=== PATIENT | male | born 1995 | race Caucasian/White ===

== ENCOUNTER 2020-08-31 10:37 | Emergency (ER) | payer SELFPAY ==
[~2020-08-31] VITALS: Ht 172.7 cm; Wt 93.0 kg
[2020-08-31 10:55] VITALS: BP 138/78
[2020-08-31] MEDS ORDERED: CARI350T PO (11:32)
== END 2020-08-31 11:44 | disposition home or self-care (01) ==
LOC: ER 10:42
DX: S30.0XXA Contusion of lower back and pelvis, initial encounter (principal); Z79.899 Other long term (current) drug therapy; V49.49XA Driver injured in collision with other motor vehicles in traffic accident, initial encounter; Y93.89 Activity, other specified; Y92.488 Other paved roadways as the place of occurrence of the external cause; Y99.8 Other external cause status
CPT/HCPCS: 72100-TC